=== PATIENT | male | born 1945 | race African-American/Black ===

== ENCOUNTER 2022-08-05 10:47 | Emergency (ER) | payer MEDICARE ==
[~2022-08-05] VITALS: Ht 177.8 cm; Wt 92.5 kg
[~2022-08-05 10:47] MED LIST: AMLODIPINE BESYL5 MG PO; BACLOFEN10 MG PO; ENALAPRIL-HCTZ1 EACH PO; OMEPRAZOLE20 MG PO; PRAVASTATIN SOD40 MG PO; ULTRAM 50MG50 MG PO
[2022-08-05] MEDS ORDERED: FLOMAX0.4 MG PO (11:12)
[2022-08-05 11:28] LABS: CLARITY,URINE CLEAR (CLEAR); COLOR,URINE YELLOW (YELLOW); KETONES,URINE NEGATIVE (NEGATIVE); LEUKOCYTE ESTERASE ,URINE NEGATIVE (NEGATIVE); NITRITE,URINE NEGATIVE (NEGATIVE); PROTEIN,URINE DIPSTICK NEGATIVE (NEGATIVE); URINE UROBILINOGEN 0.2 mg/dL (0.2 - 1)
[2022-08-05 11:29] LABS: BACTERIA,URINE FEW /HPF; EPITHELIAL CELLS,URINE FEW /LPF
[2022-08-05 11:50] VITALS: BP 129/59
== END 2022-08-05 11:56 | disposition home or self-care (01) ==
LOC: ER 10:53
DX: R35.0 Frequency of micturition (principal); R30.0 Dysuria; I10 Essential (primary) hypertension; Z79.899 Other long term (current) drug therapy; Z85.46 Personal history of malignant neoplasm of prostate; Z92.3 Personal history of irradiation
CPT/HCPCS: 81001; 87086; 99283